=== PATIENT | male | born 1940 | race Caucasian/White ===

== ENCOUNTER 2016-08-10 09:49 | Day surgery (SDC) | payer MEDICARE, BC ==
--- NOTE | ~2016-08-10 | EGD ---
EGD REPORT [facility] [address] [address] NAME: ZOILA MAY : [birth year] STATUS : REG [facility]#: [id number] AGE: 75 ADM/REG DATE : 08/10/16 MR#: [id number] REPORT SERV DATE: 08/10/16 DICTATED BY: DEVONTE POLANCO DATE: 08/10/16 REPORT STATUS : Draft TRANSCRIBED BY: [employer] DATE: 08/10/16 [facility] Patient Name: Zoila May Date of : 1940 Attending MD: DEVONTE POLANCO MD Procedure Date No Time: 08/10/2016 Procedure: Colonoscopy Indications: High risk colon cancer surveillance: Personal history of colonic polyps Referring MD: STELLA TROTTER MD Medicines: as per anesthesia Complications: No immediate complications. Procedure: Pre-Anesthesia Assessment: - ASA Grade Assessment: IV - A patient with severe systemic disease that is a constant threat to life. After I obtained informed consent, the scope was passed under direct vision. Throughout the procedure, the patient's blood pressure, pulse, and oxygen saturations were monitored continuously. The PCF [id number] was introduced through the anus and advanced to the cecum, identified by appendiceal orifice and ileocecal valve. The colonoscopy was performed without difficulty. The patient tolerated the procedure. The quality of the bowel preparation was adequate to identify polyps. Findings: The perianal and digital rectal examinations were normal. A sessile polyp was found in the cecum. The polyp was 10 mm in size. The polyp was removed with a cold snare. Resection and retrieval were complete. A few medium-mouthed diverticula were found in the sigmoid colon. Internal hemorrhoids were found during endoscopy and were mild. Impression: - One 10 mm polyp in the cecum. Resected and retrieved. - Diverticulosis in the sigmoid colon. - Internal hemorrhoids. Recommendation: - Await pathology results. - Repeat colonoscopy for surveillance based on pathology results. Procedure Code(s): --- Professional --- 53521, Colonoscopy, flexible, proximal to splenic flexure; with removal of tumor(s), polyp(s), or other lesion(s) by snare technique EGD REPORT [facility] [address] [place] [address] [place]. [address] NAME: ZOILA MAY : [birth year] [place]US [place] [facility] [place] [id number] AGE: 75 ADM/REG DATE : 08/10/16 MR#: [id number] REPORT SERV DATE: 08/10/16 DICTATED BY: DEVONTE POLANCO DATE: 08/10/16 REPORT STATUS : Draft TRANSCRIBED BY: [employer] DATE: 08/10/16 Diagnosis Code(s): --- Professional --- D12.0, Benign neoplasm of cecum K64.8, Other hemorrhoids K57.30, Diverticulosis of large intestine without perforation or abscess without bleeding Z86.010, Personal history of colonic polyps CPT copyright 2013 [employer]. All rights reserved. The codes documented in this report are preliminary and upon department store manager review may be revised to meet current compliance requirements. DEVONTE POLANCO MD 08/10/2016 12:27 PM This report has been signed electronically. Number of Addenda: 0 Note Initiated On: 08/10/2016 11:36 AM Scope Withdrawal Time 0 hours 21 minutes [address] [place], [place] [address] [address]
--- NOTE | ~2016-08-10 | EGD ---
EGD REPORT [facility] [address] [address] NAME: ZOILA MAY : [birth year] STATUS : REG [facility]#: [id number] AGE: 75 ADM/REG DATE : 08/10/16 MR#: [id number] REPORT SERV DATE: 08/10/16 DICTATED BY: DEVONTE POLANCO DATE: 08/10/16 REPORT STATUS : Draft TRANSCRIBED BY: [employer] DATE: 08/10/16 [facility] Center Patient Name: Zoila May Date of : 1940 Attending MD: DEVONTE POLANCO MD Procedure Date No Time: 08/10/2016 Procedure: Upper GI endoscopy Indications: Heartburn, Suspected esophageal reflux Referring MD: STELLA TROTTER MD Medicines: as per anesthesia Complications: No immediate complications. Procedure: Pre-Anesthesia Assessment: - ASA Grade Assessment: IV - A patient with severe systemic disease that is a constant threat to life. After obtaining informed consent, the endoscope was passed under direct vision. Throughout the procedure, the patient's blood pressure, pulse, and oxygen saturations were monitored continuously. The GIF H190 [id number] was introduced through the mouth, and advanced to the third part of duodenum. The upper GI endoscopy was accomplished without difficulty. The patient tolerated the procedure. Findings: The examined esophagus was normal. A small hiatus hernia was present. Localized mild inflammation characterized by erythema was found in the gastric antrum. Biopsies were taken with a cold forceps for histology. The examined duodenum was normal. Impression: - Normal esophagus. - Hiatus hernia. - Gastritis. Biopsied. - Normal examined duodenum. Recommendation: - Await pathology results. - Follow an antireflux regimen. - Continue present medications. Procedure Code(s): --- Professional --- 82154, Esophagogastroduodenoscopy, flexible, transoral; with biopsy, single or multiple Diagnosis Code(s): --- Professional --- K44.9, Diaphragmatic hernia without obstruction or EGD REPORT [facility] [address] [place]. [address] NAME: ZOILA MAY : [birth year] STATUS : REG [facility] PAT#: [id number] AGE: 75 ADM/REG DATE : 08/10/16 MR#: [id number] REPORT SERV DATE: 08/10/16 DICTATED BY: DEVONTE POLANCO. DATE: 08/10/16 REPORT STATUS : Draft TRANSCRIBED BY: [employer] DATE: 08/10/16 gangrene K29.70, Gastritis, unspecified, without bleeding R12, Heartburn CPT copyright 2013 [employer]. All rights reserved. The codes documented in this report are preliminary and upon cage maker review may be revised to meet current compliance requirements. DEVONTE POLANCO MD 08/10/2016 11:57 AM This report has been signed electronically. Number of Addenda: 0 Note Initiated On: 08/10/2016 11:37 AM Scope Withdrawal Time 0 hours 0 minutes 0 seconds [id number] [place] [phone]
[~2016-08-10 09:49] MED LIST: ASAB PO; BEN25 PO; BENICAR20 PO; C1 PO; CALCIUM PO; CARD120 PO; CELEBREX2 PO; CENTRUM PO; CLARIT10 PO; CORAL CALCIUM; CORAL CALCIUM PO; CORDARONE PO; COREG3 PO; COREG6 PO; COUMADIN3 MG PO; COZAAR100 MG PO; CYPROHEPTAD4 MG PO; DILT-XR120 MG PO; ELIQUIS 5 MG TAB5 MG PO; ESTER C OR; ESTER-C500 MG PO; FERROUS SULF325 M1 PO; IMU PO; KLOR-CON M2020 MEQ PO; L40 PO; LIPITOR20 PO; MAG PO; MAGCIT PO; MAGNEBIND PO; MEDROL32 MG PO; MEP50TAB PO; NEXIUM40 PO; OTC IRON PO; PCET PO; PEP20 PO; PRILOSEC40 MG PO; PRIN5 PO; RAPAFLO8 MG PO; TIKOSYN 500 M500 MCG OR; TIKOSYN 500 M500 MCG PO; TIKOSYN500 MCG OR; ULTRACET PO; UROXATRAL PO; VIT D PO; VITAMIN B 6 OR; VITAMIN B-650 MG OR; VITAMIN B-6500 MG OR
== END 2016-08-10 23:59 | disposition home or self-care (01) ==
LOC: DMU 09:49
PROVIDERS: Internal Medicine Gastroenterology
PROC: 0DBH8ZX Excision of Cecum, Via Natural or Artificial Opening Endoscopic, Diagnostic (ICD-10-PCS; principal; 2016-08-10 12:00)
PROC: 0DB68ZX Excision of Stomach, Via Natural or Artificial Opening Endoscopic, Diagnostic (ICD-10-PCS; 2016-08-10 12:00)
DX: Z12.11 Encounter for screening for malignant neoplasm of colon (principal); D12.0 Benign neoplasm of cecum; K29.50 Unspecified chronic gastritis without bleeding; K64.8 Other hemorrhoids; K57.30 Diverticulosis of large intestine without perforation or abscess without bleeding; K44.9 Diaphragmatic hernia without obstruction or gangrene; I48.91 Unspecified atrial fibrillation; I11.9 Hypertensive heart disease without heart failure; M19.90 Unspecified osteoarthritis, unspecified site; D64.9 Anemia, unspecified; G47.33 Obstructive sleep apnea (adult) (pediatric); Z86.010 Personal history of colon polyps; Z88.0 Allergy status to penicillin; Z87.442 Personal history of urinary calculi; Z88.2 Allergy status to sulfonamides; Z88.8 Allergy status to other drugs, medicaments and biological substances; Z90.49 Acquired absence of other specified parts of digestive tract
CPT/HCPCS: 88305